=== PATIENT | male | born 1975 | race Caucasian/White ===

== ENCOUNTER 2023-12-31 08:43 | Outpatient (CLI) | payer MEDICAID ==
[~2023-12-31 08:43] MED LIST: CHLO25CA10 PO; FOLI1TAB27 PO; FURO-150 PO; MULT-1085 PO; NADO20TA36 PO; PANT40TA54 PO; SODI1TAB2 PO; SPIR100T PO; THIA100T70 PO
== END 2023-12-31 23:59 | disposition home or self-care (01) ==
LOC: RAD 08:43
PROVIDERS: ATTEND Physician Assistant
DX: M25.512 Pain in left shoulder (principal)
CPT/HCPCS: 73030

== ENCOUNTER 2024-04-08 08:39 | Outpatient (CLI) | payer MEDICAID | END 2024-04-08 23:59 | disposition home or self-care (01) | LOC: RAD 08:39 | PROVIDERS: ATTEND Transplant Surgery | DX: K74.69 Other cirrhosis of liver (principal); K82.4 Cholesterolosis of gallbladder; R16.0 Hepatomegaly, not elsewhere classified | CPT/HCPCS: 76700 ==